=== PATIENT | female | born 1985 | race Caucasian/White ===

== ENCOUNTER 2017-05-27 03:29 | Emergency (ER) | payer MEDICAID, OTHER ==
[~2017-05-27] VITALS: Ht 157.5 cm; Wt 50.0 kg
[2017-05-27 03:32] VITALS: BP 139/79; PULSE 74; RESP 16; TEMP 97.6; O2SAT 99
[2017-05-27] MEDS ORDERED: MORPHINE SULFATE 2 MG/ML INJ IV PUSH ONE (04:30)
[2017-05-27] MEDS ORDERED: SODIUM CHLORIDE 0.9% FLUSH 10 ML FLUSH IVF PRN (04:30)
[2017-05-27] MEDS ORDERED: KETOROLAC TROMETHAMINE 30 MG/ML (IVP) VIAL IVP ONE (04:30)
[2017-05-27] MEDS ORDERED: ONDANSETRON HCL 4 MG/2 ML VIAL IVP ONE (04:30)
[2017-05-27] MEDS ORDERED: SODIUM CHLOR 0.9% 1000 ML INJ 1,000 ML IV ONE (04:30)
--- NOTE | 2017-05-27 04:56 | PD ---
HPI . Abdominal and flank pain Chief Complaint: Abdominal Pain Time Seen by Provider: 04:19 Travel History International Travel<30 days: No Contact w/Intl Traveler<30days: No Traveled to known affect area: No History of Present Illness HPI Patient presents with the acute onset of right lower quadrant abdominal and right flank pain. It awakened her from sleep in the wee hours of the morning. It is associated with vomiting. She rates the pain 10/10. There are no modifying factors. She denies any associated fever. No urinary tract symptoms. 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 No diarrhea. No previous similar history. [facility] Past Medical History Asthma: No Diminished Hearing: No ?: Not Ovarian Cysts: Yes Past Surgical History Surgical History: No Previous Surgery Social History Alcohol Use: No Tobacco Use: Yes (1-2 PPD) Substance Use: No Allergies-Medications (Allergen,Severity, Reaction): Coded Allergies: No Known Allergies (Verified Allergy, Unknown, 05/27/17) Review of Systems Except as stated in HPI: all other systems reviewed are Neg General / Constitutional: No: Fever, Chills Gastrointestinal: Positive: Nausea, Vomiting, Abdominal Pain, No: Diarrhea Genitourinary: Positive: Flank Pain, No: Urgency, Frequency, Dysuria Physical Exam Narrative GENERAL: Patient is obviously uncomfortable. She is sitting up on the bed flexed at the waist. This makes examination difficult. SKIN: warm/dry. HEAD: Normocephalic. Atraumatic. EYES: Pupils equal and round. No scleral icterus. No injection or drainage. ENT: No nasal bleeding or discharge. Mucous membranes pink and moist. NECK: Trachea midline. Full range of motion without pain.. CARDIOVASCULAR: Regular rate and rhythm. RESPIRATORY: No accessory muscle use. Clear to auscultation. Breath sounds equal bilaterally. GASTROINTESTINAL: Abdomen soft. Right sided abdominal tenderness. Bowel sounds present. Nondistended. : Positive right CVA tenderness. MUSCULOSKELETAL: No obvious deformities. NEUROLOGICAL: Awake and alert. No obvious cranial nerve deficits. Motor grossly within normal limits. Normal speech. PSYCHIATRIC: Appropriate mood and affect; insight and judgment normal. Data Data Last Documented VS Vital Signs Date Time Temp Pulse Resp B/P (MAP) Pulse Ox O2 Delivery O2 Flow Rate FiO2 05/27/17 03:32 97.6 74 16 139/79 (99) 99 Room Air Orders Orders Basic Metabolic Panel (Bmp) (05/27/17 04:20) Complete Blood Count With Diff (05/27/17 04:20) Urinalysis - C+S If Indicated (05/27/17 04:20) Ct Abd/Pel W/O Iv Contrast (05/27/17 04:20) Ketorolac Inj (Toradol Inj) (05/27/17 04:30) Ondansetron Inj (Zofran Inj) (05/27/17 04:30) Sodium Chloride 0.9% Flush (Ns Flush) (05/27/17 04:30) Ed Urine Pregnancytest Poc (05/27/17 04:20) Sodium Chlor 0.9% 1000 Ml Inj (Ns 1000 M (05/27/17 04:30) Morphine Inj (Morphine Inj) (05/27/17 04:30) Labs Laboratory Tests Test 05/27/17 04:04 05/27/17 04:38 Urine Color YELLOW Urine Turbidity CLEAR Urine pH 7.5 Urine Specific [place] 1.014 Urine Protein NEG mg/dL Urine Glucose (UA) NEG mg/dL Urine Ketones NEG mg/dL Urine Occult Blood SMALL Urine Nitrite NEG Urine Bilirubin NEG Urine Urobilinogen 2.0 MG/DL Urine Leukocyte Esterase NEG Urine RBC 29 /hpf Urine WBC 2 /hpf Urine Squamous Epithelial Cells 3 /hpf Urine Bacteria RARE /hpf Urine Mucus FEW /lpf Microscopic Urinalysis Comment CULT NOT INDICATED White Blood Count 10.7 TH/MM3 Red Blood Count 3.70 MIL/MM3 Hemoglobin 12.4 GM/DL Hematocrit 34.8 % Mean Corpuscular Volume 94.1 FL Mean Corpuscular Hemoglobin 33.4 PG Mean Corpuscular Hemoglobin Concent 35.5 % Red Cell Distribution Width 12.8 % Platelet Count 207 TH/MM3 Mean Platelet Volume 7.6 FL Neutrophils (%) (Auto) 82.9 % Lymphocytes (%) (Auto) 10.0 % Monocytes (%) (Auto) 6.0 % Eosinophils (%) (Auto) 0.6 % Basophils (%) (Auto) 0.5 % Neutrophils # (Auto) 8.8 TH/MM3 Lymphocytes # (Auto) 1.1 TH/MM3 Monocytes # (Auto) 0.6 TH/MM3 Eosinophils # (Auto) 0.1 TH/MM3 Basophils # (Auto) 0.0 TH/MM3 CBC Comment DIFF FINAL Differential Comment Blood Urea Nitrogen 8 MG/DL Creatinine 0.73 MG/DL Random Glucose 119 MG/DL Calcium Level 8.6 MG/DL Sodium Level 139 MEQ/L Potassium Level 4.1 MEQ/L Chloride Level 107 MEQ/L Carbon Dioxide Level 25.5 MEQ/L Anion Gap 7 MEQ/L Estimat Glomerular Filtration Rate 94 ML/MIN MDM Medical Decision Making Medical Screen Exam Complete: Yes Emergency Medical Condition: Yes Differential Diagnosis Differential diagnosis of flank pain includes but is not limited to kidney stone , pyelonephritis, musculoskeletal pain, PE Narrative Course Patient presents with acute right flank and right lower quadrant abdominal pain. Her pain will be treated with morphine and Toradol. CT has been ordered to look for appendicitis or renal calculus. UA, test and routine labs are pending. test is negative. CBC & BMP Diagram 05/27/17 04:38 Calcium Level 8.6 UA>>small blood, 29 RBCs Last Impressions Abdomen/Pelvis CT 05/27/17 0420 Signed Impressions: Service Date/Time: , May 27, 2017 05:06 - CONCLUSION: 1. Right-sided obstructive uropathy with significant hydronephrosis and hydro-ureter caused by a 4 mm calcified stone at ureterovesical junction. 2. No stones or hydronephrosis on the left side. 3. Mild amount of free fluid in the pelvis. Kenn Byrd MD As patient looks significantly more comfortable at this point. She will be discharged home. She reports that she has passed several previous kidney stones. None of them have hurt as badly as this one. Diagnosis Primary Impression: Right flank pain Referrals: Ronnie Hernandez MD Patient Instructions: General Instructions, Kidney Stones (DC) Additional Instructions: Niles and Phenergan together for pain and nausea. Flomax daily as directed. Lots of fluids. Med/Other Pt SpecificInfo: Prescription(s) given Scripts Tamsulosin (Flomax) 0.4 Mg Cap 0.4 MG PO HS for Manage Prostate Problems, #30 CAP 0 Refills Prov: Laurie Presley MD 05/27/17 Promethazine (Phenergan) 25 Mg Tablet 25 MG PO Q6H Y for NAUSEA OR VOMITING, #12 TAB 0 Refills Prov: Laurie Presley MD 1/25/18 Hydrocodone-Acetaminophen ([place]iles) 5 Mg-325 Mg Tab 1 TAB PO Q4H Y for PAIN, #12 TAB 0 Refills Prov: Laurie Presley MD 05/27/17 Disposition: 01 DISCHARGE HOME Condition: Stable Laurie Presley MD May 27, 2017 04:56
[2017-05-27 05:06] LABS: AUTOMATED NEUTROPHIL # 8.8 TH/MM3 (1.8-7.7); BASOPHIL % 0.5 % (0.0-2.0); EOSINOPHIL # 0.1 TH/MM3 (0-0.4); EOSINOPHIL % 0.6 % (0.0-4.0); HEMATOCRIT 34.8 % (35.0-46.0); HEMOGLOBIN 12.4 GM/DL (11.6-15.3); LYMPHOCYTE # 1.1 TH/MM3 (1.0-4.8); MEAN CELL VOLUME 94.1 FL (80.0-100.0); MEAN CORPUSCULAR HEMOGLOBIN 33.4 PG (27.0-34.0); MEAN CORPUSCULAR HGB CONC 35.5 % (32.0-36.0); MEAN PLATELET VOLUME 7.6 FL (7.0-11.0); MONOCYTE # 0.6 TH/MM3 (0-0.9); NEUT % 82.9 % (16.0-70.0); PLATELET COUNT 207 TH/MM3 (150-450); RED CELL DISTRIBUTION WIDTH 12.8 % (11.6-17.2); WHITE BLOOD COUNT 10.7 TH/MM3 (4.0-11.0)
[2017-05-27 05:10] LABS: BACTERIA, URINE RARE /hpf; BILIRUBIN, URINE NEG (NEG); BLOOD, URINE SMALL (NEG); GLUCOSE,URINE NEG (NEG); KETONE, URINE NEG (NEG); MUCUS URINE FEW /lpf (OCC); NITRITE,URINE NEG (NEG); PH, URINE 7.5 (5.0-8.5); SQUAMOUS EPITHELIAL CELL URINE 3 /hpf (0-5); URINE COLOR YELLOW (YELLW/STRAW); URINE LEUKOCYTE ESTERASE NEG (NEG)
[2017-05-27 05:29] LABS: BICARBONATE 25.5 MEQ/L (21.0-32.0); CALCIUM 8.6 MG/DL (8.5-10.1); CREATININE 0.73 MG/DL (0.50-1.00)
--- NOTE | 2017-05-27 05:30 | RADRPT ---
EXAM DATE/TIME: 05/27/2017 05:06 [facility] COMPARISON: No previous studies available for comparison. INDICATIONS : Bilateral lower quadrant pain with vomiting. ORAL CONTRAST: No oral contrast ingested. RADIATION DOSE: 6.64 CTDIvol (mGy) MEDICAL HISTORY : Ovarian cysts. SURGICAL HISTORY : None. ENCOUNTER: Initial ACUITY: 1 day PAIN SCALE: 7/10 LOCATION: Bilateral lower quadrant TECHNIQUE: Renal colic protocol. Volumetric scanning of the abdomen and pelvis was performed. Using automated exposure control and adjustment of the mA and/or kV according to patient size, radiation dose was kep t as low as reasonably achievable to obtain optimal diagnostic quality images. DICOM format image da ta is available electronically for review and comparison. FINDINGS: Right side: Enlargement of the kidney and perinephric fluid seen in the perirenal space. Moderate severity hydro nephrosis and dilation of the right ureter, measuring up to 1.7 cm down to the ureterovesical junctio n where there is a 5 mm stone causing obstruction. No additional calcified stones in the right kidne y. Left side: No evidence of hydronephrosis or calcified stones. Left ureter is normal dimension. Bladder: Smooth margins. No calcifications within the lumen. Other: No dilated loops of small or large bowel. No calcified gallstones. Anteverted uterus. Mild free fl uid in the dependent pelvis. CONCLUSION: 1. Right-sided obstructive uropathy with significant hydronephrosis and hydro-ureter caused by a 4 mm calcified stone at ureterovesical junction. 2. No stones or hydronephrosis on the left side. 3. Mild amount of free fluid in the pelvis. Kenn Byrd MD on May 27, 2017 at 5:25 Board Certified Radiologist. This report was verified electronically.
[2017-05-27] MEDS ORDERED: TAMS5CAP PO (05:45)
[2017-05-27] MEDS ORDERED: NORC5TAB PO (05:45)
[2017-05-27] MEDS ORDERED: PROM25TA10 PO (05:45)
[2017-05-27] MEDS ORDERED: TAMSULOSIN HCL 0.4 MG CAP PO ONE (06:00)
[2017-05-27] MEDS: HYDROmorphone HCL PF 2 MG/ML VIAL IV PUSH ONE ×2 (06:29→06:30)
[2017-05-27 06:30] VITALS: BP 99/59
== END 2017-05-27 06:49 | disposition home or self-care (01) ==
LOC: NEPC 03:29
DX: N13.2 Hydronephrosis with renal and ureteral calculous obstruction (principal); F17.210 Nicotine dependence, cigarettes, uncomplicated; Z87.442 Personal history of urinary calculi
CPT/HCPCS: 74176; 80048; 81001; 84703; 85025; 96361; 96374; 96375; 99285; J1170; J1885; J2270; J2405; J7030